=== PATIENT | male | born 1965 | race American Indian/Alaskan Native ===

== ENCOUNTER 2018-03-23 06:39 | Day surgery (SDC) | payer BC ==
[2018-03-18 16:05] VITALS: BMI 32.6
[2018-03-23 07:22] VITALS: RESP 18
--- NOTE | 2018-03-23 07:22 | CP.SDSHP ---
Same Day Surgery H & P - History Proposed Procedure: Right knee arthroscopic ACL reconstruction versus repair, partial medial meniscectomy versus repair Pre-Op Diagnosis: Right knee ACL tear, medial meniscus tear - Previous Medical/Surgical History Pulmonary: Asthma Pain: 4.Moderate Pain Previous Surgical History: Bilateral inguinal hernia repair - Allergies Allergies: Allergies No Known Allergies Allergy (Verified 03/18/18 16:05) - Current Medications Current Medications: Ventolin, Colcrys - Physical Exam General Appearance: NAD Mental Status: Alert & Oriented x3 Neuro: WNL Heart: WNL Lungs: WNL GI: WNL Social History: Smoking (Cigars) - {Optional Preform as Required} Integument: WNL Ortho: Other Short Stay Discharge - Short Stay Discharge Admitting Diagnosis/Reason for Visit: M23.611/S83.271A/S83.232A Disposition: HOME/ ROUTINE
--- NOTE | 2018-03-23 07:59 | CP.PCM.HP ---
History of Present Illness - History of Present Illness History of Present Illness: Orthopedic H&P Patient is a 52 y/o male who presents for elective right knee arthroscopy. He reports an injury that occurred on March 01 at home while kneeling to fix his furnace, twisting onto a rock on the floor eliciting severe pain. The patient tried and failed conservative means with exercises and oral medications. He also complains of the inabilty to extend his knee. The pain is severe, constant and worse with movement. He denies any radiation of pain/numbness/tingling. He denies any CP/SOB/N/V/D/fever/melena/dysuria. Present on Admission - Present on Admission Any Indicators Present on Admission: No Review of Systems - Review of Systems All systems: reviewed and no additional remarkable complaints except Review of Systems: as per HPI Past Patient History - Past Medical History & Family History Past Medical History?: No Past Family History: Reviewed and not pertinent - Past Social History Cigar Use: Yes (1-2 per month) Alcohol: Occasional Drugs: Denies - CARDIAC Hx Cardiac Disorders: No - PULMONARY Hx Asthma: Yes - NEUROLOGICAL Hx Neurological Disorder: No - HEENT Hx HEENT Problems: No - RENAL Hx Chronic Kidney Disease: No - ENDOCRINE/METABOLIC Hx Endocrine Disorders: No - HEMATOLOGICAL/ONCOLOGICAL Hx Blood Disorders: No - INTEGUMENTARY Hx Dermatological Problems: No - MUSCULOSKELETAL/RHEUMATOLOGICAL Hx Back Pain: Yes - GASTROINTESTINAL Hx Gastrointestinal Disorders: No - GENITOURINARY/GYNECOLOGICAL Hx Genitourinary Disorders: No - PSYCHIATRIC Hx Emotional Abuse: No Hx Physical Abuse: No - SURGICAL HISTORY Hx Surgeries: Yes Hx Herniorrhaphy: Yes (bilateral inguinal 1999) - ANESTHESIA Hx Anesthesia: Yes Hx Anesthesia Reactions: No Hx Malignant Hyperthermia: No Has any member of the family had a problem w/ anesthesia?: No Meds Allergies/Adverse Reactions: Allergies Allergy/AdvReac Type Severity Reaction Status Date / Time perennial Allergy CONGESTION Uncoded 03/23/18 07:55 Physical Exam - Constitutional Appears: Well, No Acute Distress - Head Exam Head Exam: ATRAUMATIC, NORMOCEPHALIC - Eye Exam Eye Exam: EOMI, Normal appearance, PERRL - ENT Exam ENT Exam: Mucous Membranes Moist - Respiratory Exam Respiratory Exam: NORMAL BREATHING PATTERN - GI/Abdominal Exam GI & Abdominal Exam: Soft. absent: Tenderness - Extremities Exam Additional comments: R knee: mild swelling and effusion palpable quad tendon, no defect palpable patella tendon with mild defect 3/5 quad strength sensation intact SP/DP/TN pedal pulse intact comps soft NT - Neurological Exam Neurological exam: Alert, Oriented x3 - Psychiatric Exam Psychiatric exam: Normal Affect, Normal Mood - Skin Skin Exam: Normal Color, Warm Results - Vital Signs Recent Vital Signs: Last Vital Signs Temp 97.7 F 03/23/18 07:21 Pulse 62 03/23/18 07:31 Resp 18 03/23/18 07:21 BP 143/91 H 03/23/18 07:21 Pulse Ox 96 03/23/18 07:21 - Impressions Impression: Right knee MRI from [facility] on 03/17/18, reveals disruption of the PCL and ACL, tear of the medial meniscus, severe anterior swelling and edema. Assessment & Plan (1) Tears of meniscus and anterior cruciate ligament of right knee Assessment and Plan: -Due to patient going on vacation to [facility] following his injury, treatment was delayed 2 1/2 - 3 weeks which may complicate his results, namely his ability to extend his knee. -OR today for Right knee arthroscopy, possible patella tendon repair -Risks/benefits/alternatives were explained to the patient who understands and agrees to proceed with above -medical clearance in chart -NPO -above d/w Dr. Vásquez in agreement Status: Acute - Date & Time Date: 03/23/18 Time: 07:30
[2018-03-23] MEDS ORDERED: Lactated Ringer's 1,000 ML IV ONE ×2 (08:39→17:23)
[2018-03-23] MEDS ORDERED: Succinylcholine Chloride 20 mg/ml Syr (5 ml) IV ONE (10:25)
[2018-03-23] MEDS ORDERED: Propofol 10 mg/ml Inj (20 ML) ONE (10:25)
[2018-03-23] MEDS ORDERED: Midazolam 2 MG/2 ML VIAL ONE (10:25)
[2018-03-23] MEDS ORDERED: Lidocaine 1% Inj (20ml) ONE (10:56)
[2018-03-23] MEDS ORDERED: Bupivacaine 0.5% Inj(30mL) ONE (10:56)
[2018-03-23] MEDS ORDERED: Thrombin Topical 5,000 Int Units Spray Kit ONE (10:56)
[2018-03-23] MEDS ORDERED: EPINEPHrine 1 mg/ml (1:1000) Inj ONE (10:59)
[2018-03-23] MEDS ORDERED: Bacitracin Ointment 30 GM TUBE ONE (12:01)
[2018-03-23] MEDS ORDERED: Ropivacaine 0.5% 30ML IV ONE (12:13)
[2018-03-23] MEDS ORDERED: Desflurane Inhalation Anesthetic Liq (240 ml) ONE (15:02)
[2018-03-23] MEDS ORDERED: Dexamethasone 4 mg/1 ml ONE (15:09)
[2018-03-23] MEDS ORDERED: Bacitracin OINT 15GM TOP ONE (15:44)
[2018-03-23] MEDS ORDERED: Oxycodone/Acetaminophen 5/325 mg Tab PO PRN (16:10)
[2018-03-23] MEDS ORDERED: HYDROmorphone 0.5 mg/0.5 ml ISec IVP PRN (16:20)
--- NOTE | 2018-03-23 16:25 | PCM.ANESB3 ---
Femoral Nerve Block - Femoral Nerve Block Date of Procedure: 03/23/18 Anesthesiologist: todd Pre-Procedure Diagnosis: torn ACL right Post-Procedure Diagnosis: same Procedure Performed: Femoral Nerve Block Right - Procedure Femoral Nerve Block: The procedure was explained to the patient that it is for the post-operative pain management. Consent was obtained after a thorough discussion with the patient regarding the benefits and possible complications of local anesthetic block of the femoral nerve at the inguinal crease area. The patient was brought to the operating room and standard monitors were applied. Time-out was held with the circulating nurse to confirm the correct surgery and the appropriate block. After applying oxygen by nasal cannula and administering IV Sedation, patient was induced and under GA. patient was placed in supine position with fully extended lower extremities and the ___right groin exposed. The femoral artery was then carefully palpated. The ultrasound transducer was then applied to this area in the transverse plane and the femoral nerve was visualized lateral to the femoral artery and underneath the fascia iliaca. After thorough identification, the inguinal crease area was prepped with chlorprep solution three times and 1 % Lidocaine was injected subcutaneously for topical anesthesia. At this point, a #22 gauge Stimuplex 2-inch needle was inserted immediately lateral to the femoral artery pulse at the inguinal crease and advanced perpendicularly. The needle was inserted to the ultrasound transducer in-plane towards the femoral nerve in a [id number] direction. Needle advancement was performed carefully under direct ultrasound visualization. Nerve stimulator was used and twitch of the quadriceps muscle was obtained at current of _0.4____MA. After negative aspiration, __30___cc of __0.5___% __Ropivicaine was injected and this was followed with cc of % . Under ultrasound guidance the local anesthetics were observed spreading below fascia iliaca and around the femoral nerve. The needle was removed intact and sterile dressing was applied. The patient had stable vital signs, and in no apparent distress. The patient tolerated the femoral nerve block well with stable vital signs and was prepared for subsequent surgery.
[2018-03-23 18:17] VITALS: O2SAT 97
[2018-03-23 18:46] VITALS: BP 138/83; PULSE 80; TEMP 97.9
--- NOTE | 2018-03-24 07:42 | PCM.SURG1 ---
Surgeon's Initial Post Op Note - Surgeon's Notes Surgeon: Fahad Pouncing Machine Operator: MEE Cancino Type of Anesthesia: General Endo, Block Regional Anesthesia Administered By: DR krzysztof Smith Pre-Operative Diagnosis: Tear ACL. Meniscal Tear. Quadriceps tendon partial rupture. R/O Quad tendon dysfunction. tear medial/lateral meniscus Operative Findings: Tear Quad tendon R with massive edema and quad muscle edema/atrophy. tear medial menoiscus/tear lateral meniscus R knee. tear lateral patella retinaculum. partial rupture anterior cruciate liga,ment(PCL intact) Post-Operative Diagnosis: as above Operation Performed: arthrotomy/repair /reinforcemnt quad tendon. arthrotomy/repair ;lateral patella retinaculum. arthroscopy ACL repair/quinten nstruction. arthroscopy partial medial/partial lateral meniscectomy. arthroscopy partial tricompartmental synovectomy. intraarticular injecftion. applx Maciel Nunez dressing and knee immobilizer Specimen/Specimens Removed: tendon/cartilage/synovium Estimated Blood Loss: EBL {In ML}: 15 Blood Products Given: N/A Drains Used: No Drains Post-Op Condition: Fair Date of Surgery/Procedure: 03/23/18 Time of Surgery/Procedure: 13:55 (/time in room 12:45/anaesthesia indcution time 12:45)
--- NOTE | 2018-03-24 11:42 | OP ---
PROCEDURE DATE: 03/23/2018 PREOPERATIVE DIAGNOSIS: Post-traumatic injury to the right knee. POSTOPERATIVE DIAGNOSES: 1. Tear of the quadriceps tendon of the right knee with anterior edema and quad muscle edema and atrophy. 2. Partial rupture anterior cruciate ligament. 3. Tear of medial meniscus, tear of lateral meniscus without meniscocapsular separation. 4. Tricompartmental synovectomy. OPERATIVE FINDINGS: 1. Tear of the quadriceps tendon with edema and quad muscle atrophy (rule out preexisting quad tendon dysfunction). 2. Tear of medial meniscus, tear of lateral meniscus, right knee. 3. Tear of lateral patellar retinaculum. 4. Partial rupture of anterior cruciate ligament. OPERATIONS PERFORMED: 1. Primary repair arthrotomy of the quadriceps tendon. 2. Primary arthrotomy repair of lateral patellar retinaculum. 3. Arthroscopic anterior cruciate ligament repair/reconstruction. 4. Arthroscopic partial medial and lateral meniscectomy. 5. Arthroscopic partial tricompartmental synovectomy. 6. Application of Maciel Nunez compression dressing and knee immobilizer. SURGEON: Favian Vásquez MD HOSPITALITY WORKERS: HOLLIE Reeves, certified registered nursing first aid attendant. SPECIMENS REMOVED: Tendon cartilage with synovium. BLOOD LOSS: 15 mL. BLOOD PRODUCTS: No blood products given. DRAINS: No drains. POSTOPERATIVE CONDITION: Stable. 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 The patient was fixing his furnace, was propping his right knee on a rock, noted pain in the area of the suprapatellar region and the entire knee. The patient ignored it. The patient had a business trip to the [facility], continued to ignore the knee, weight bear to tolerance. The patient presented as an emergency referral from Dr. Bob Marcelino with a swollen knee and essentially when first examined, inability to extend the knee. The patient was sent for an emergency MRI. Several readings were obtained and I reviewed the MRI personally. The findings were consistent with the operative findings at surgery as listed in this report. Pros, cons, risks and benefits of surgical approach were discussed. The patient wanted the surgery done as soon as possible. The concept that the patient had 3+ to 4 and 5 quadriceps weakness was discussed. The patient on the day of surgery and re-examination on 03/23/2018 was able to extend the knee, but weakly. Again pros, cons, risks and benefits were discussed. The possibility of mechanical failure, infection, thromboembolic disease, possibility of secondary surgery and the absence of complete quadriceps tendon rupture, a reinforcement repair of the quadriceps tendon with FiberTape was discussed. The concept of repair of the anterior cruciate ligament was discussed, again with the possibility of stiffness, weakness, prolonged therapy, mechanical failure, infection, thromboembolic disease was discussed. The patient did not wish to wait. He wished the surgery to be accomplished as an emergency because of business considerations and that he has a promotion forthcoming. OPERATIVE PROCEDURE: After having obtained informed consent in the above fashion, after having identified side, site and procedure of the right side and a critical pause/time-out, after the satisfactory induction of the anesthetic, the patient identified as Chetan Clark, in the supine position with all bony prominences well padded, the right lower extremity was prepped and free draped in the usual fashion for lower extremity surgery. The tourniquet had been applied, but was not yet inflated. After exsanguinating the limb using a 6-inch Esmarch bandage, tourniquet which had been applied was inflated to 350 mmHg. The arthroscopic portion of the procedure will be first addressed. After having had the lateral post employed to protect the quadriceps mechanism, the knee yang was not employed. Lateral post having been employed, having exsanguinated the limb, having sterilely prepped and draped, the joint was insufflated with 10 mL of 1% lidocaine without epinephrine. Using #11 blade an anterolateral portal was described followed by spreading, followed by introduction of blunt trocar. There was found to be a massive amount of synovitis. With the surgeon exerting a very gentle valgus stress, triangulation was accomplished using #18-gauge spinal needle, followed by #11 blade, followed by spreading, introduction of blunt trocar. With the arthroscope anterolaterally, again, there was found to be a massive amount of inflammatory synovitis. A careful partial tricompartmental synovectomy was accomplished both to improve visualization and to ablate irritative tissue. With the arthroscope anterolaterally, a careful partial tricompartmental synovectomy was accomplished both to improve visualization and to ablate irritative tissue. The arthroscope was transferred anteromedially and the tricompartmental synovectomy was completed. Bleeding points were controlled with the arthroscopic wand. With the arthroscope anterolaterally, the intercondylar notch was identified and there was found to be a partial tear of the anterior cruciate ligament with a compromise of its insertion into the femoral condyle. Please refer to the video photographs. This having been accomplished with the arthroscope now anterolaterally, the medial compartment was exposed to advantage with a very gentle valgus stress so as to protect the medial collateral ligament. There was found to be a tear of the mid posterior horn of the medial meniscus. Using a combination of straight biting basket forceps and the side-biting basket forceps, a partial medial meniscectomy was accomplished. The arthroscope was transferred anteromedially and again with a gentle valgus stress using the 3.4 mm Gridsums suction punch, there was completion of the partial medial meniscectomy. There was no evidence of meniscal capsular separation or root detachment. The inner free edge was smoothed using the arthroscopic wand. With the arthroscope anterolaterally and with the knee in figure-4 position, there was found to be a tear of the inner free edge of the lateral meniscus. Using a combination of the straight biting basket forceps and the side-biting basket forceps, a partial lateral meniscectomy was accomplished. The inner free edge of the lateral meniscus was smoothed using the arthroscopic wand. Careful partial tricompartmental synovectomy was completed. Bleeding points were controlled with the arthroscopic wand. Attention was now turned to the anterior cruciate ligament. There was found to be, please refer to the video photographs, a partial rupture of the anterior cruciate ligament. Concordant with . A third portal was accomplished inferior to the anteromedial portal using #18-gauge spinal needle, followed by #11 blade, followed by spreading. Great care was taken to protect the menisci. With the medial and lateral menisci having been addressed and partial medial lateral meniscectomies having been accomplished, again there was no evidence of root detachment either medially or laterally, anteriorly or posteriorly and no meniscocapsular separation. With the arthroscope anterolaterally, a careful partial tricompartmental synovectomy was completed. At this point in time, using the Arthrex FiberTape deployment device, in angles 90 degrees to each other, essentially a modified Ayah type suture was placed up the anterior cruciate ligament from its base insertion, the tibial plateau to the proximal region. The sutures were brought out anteriorly. This having been accomplished, with the knee hyperflexed, the area of origin of the femoral origin of the anterior cruciate ligament was smoothed using the AO periosteum elevator and this having been accomplished, drilling was accomplished, followed by the guide pin was introduced, drilling was accomplished over to the appropriate size and at this point in time with the suture in and out shuttled to the inferior portal, the anchor was loaded and the anchor was impacted. The first position was found to be unacceptable. The procedure was repeated and in a better position with the guide pin introduced, followed by reaming and introduction of the SwiveLock anchor. This having been accomplished, the SwiveLock anchor was introduced, gently impacted. The position was found to be excellent. At this point in time with the arthroscopic wand at a very low setting, the anterior cruciate ligament was carefully tented so as not to interrupt the sutures, but to strengthen the coagulation of the fibers. The repair was found to be excellent. Stiffness was checked with the probe and found to be acceptable. Tricompartmental synovectomy having been completed, bleeding points were controlled. Portals were closed with interrupted Vicryl and nylon. At this point in time using a ruler, incision was described four fingerbreadths above the patella to the mid aspect of the patella. Skin incision was carried down through the skin and subcutaneous tissue. At this point in time, there was found to be a rent in the fascia superficial to the quadriceps. This was carefully divided. The lateral retinaculum was identified and it was found to be compromising the lateral retinaculum as well. The quadriceps tendon was identified. At this point in time it should be noted that the musculature in the area of the quadriceps tendon was edematous and the muscle does not have a hearty robust normal appearance. There was evidence of edema. The muscle was not biopsied at this point in time for fear violating further the quadriceps and extensor mechanism. A secondary muscle biopsy may be indicated later if there was evidence of myositis of any type or failure to respond with therapy. This having been accomplished, the lateral retinaculum was identified. There was found to be the tear of the quadriceps extending into the lateral retinaculum. At this point in time, an incision was made at the superior border the patella where the patient was point tender preoperatively and on physical examination serially. This having been accomplished, a modified Krackow suture was initiated in the area of the quadriceps tendon extending from the superior border of the patella, extending proximally approximately 4-5 cm, extending across the quadriceps tendon and gathering the quadriceps tendon down the opposite side with a modified Krackow type suture. This having been accomplished, the guide pin was placed and patellar reaming was accomplished and at this point in time, again the SwiveLock anchor was loaded with the ends of the FiberTape, with the knee tightly in 5 degrees short of terminal extension, the anchor was introduced and the SwiveLock was used to impact the anchor. The gathering of the quadriceps was found to be excellent to the superior pole of the patella. Further repair of the quadriceps tendon was accomplished with interrupted FiberWire across the superior aspect of the patella and the extensor expansion to the quadriceps. Again the quadriceps tendon was found to be weak, the musculature was found to be pale and edematous. Attention was turned to the lateral patellar retinaculum and using a modified Marsh type suture as described by 12:52 Maximo in 1984, the knee formed function and ligament reconstruction, the repair of the lateral retinaculum was accomplished. The lateral retinaculum having been repaired with FiberWire as well in the so-called Marsh type fashion, the lateral retinaculum having been prepared, the quadriceps tendon have been prepared, the wound was thoroughly irrigated. Closures in layers with 0 Vicryl, 2-0 Vicryl and carolynn for skin. Maciel Nunez compression dressing and knee immobilizers applied. Favian Vásquez MD
== END 2018-03-23 19:40 | disposition home or self-care (01) ==
LOC: H.OPSURG 06:39
PROVIDERS: ATTEND Orthopaedic Surgery
DX: S83.511A Sprain of anterior cruciate ligament of right knee, initial encounter (principal); J45.909 Unspecified asthma, uncomplicated; M65.861 Other synovitis and tenosynovitis, right lower leg
CPT/HCPCS: 29876; 29880; 29888; 88304; 97116; 97161; G8978; G8979; J0171; J0690; J1100; J1885; J2250; J2405; J2704; J3010; J7030; J7120